=== PATIENT | male | born 1980 | race Caucasian/White ===

== ENCOUNTER 2023-11-23 11:46 | Emergency (ER) | payer BC ==
[2023-11-23] MEDS ORDERED: Aspirin Chewable 81 MG TAB ONE (12:19)
[2023-11-23 12:23] LABS: #Basophils 0.09 10x3/uL (0.0-0.2); #Eosinphils 0.29 10x3/uL (0.0-0.5); #Monocytes 0.79 10x3/uL (0.0-1.1); #Neutrophils 8.38 10x3/uL (1.5-8.4); %Basophils 0.7 % (0.0-2.0); %Eosinophils 2.3 % (0.0-6.0); %Lymphocytes 24.5 % (18.0-47.0); %Monocytes 6.2 % (0.0-10.0); %Neutrophils 65.5 % (40.0-75.0); Hematocrit 46.3 % (38.8-50.0); Hemoglobin 16.7 g/dL (13.5-17.5); Mean Corpuscular HGB CONC 36.1 g/dL (32.0-36.0); Mean Corpuscular Hemoglobin 31.9 pg (27.0-33.0); Mean Corpuscular Volume 88.4 fl (81.2-95.1); Platelet Count 273 10x3/uL (150-450); RBC Distribution Width 11.8 % (11.5-14.5); Red Blood Cell (RBC) Count 5.24 10x6/uL (4.32-5.72); White Blood Cell (WBC) Count 12.8 10x3/uL (3.5-10.5)
[2023-11-23] MEDS ORDERED: Lidocaine 2% Viscous 10 mL, Alum & Magn 30 mL SSW SCH (12:30)
[2023-11-23 12:34] LABS: ALT (SGPT) 31 U/L (8-55); AST (SGOT) 17 U/L (5-34); Albumin 4.2 g/dL (3.5-5.0); Alkaline Phosphatase 84 U/L (40-110); Anion Gap 13 mmol/L (10-20); BUN (Urea Nitrogen) 13 mg/dL (8.9-20.6); Bilirubin, Total 0.3 mg/dL (0.2-1.2); Calc. Creatinine Clearance 0 mL/min (70-130); Calcium 9.7 mg/dL (7.8-10.44); Carbon Dioxide 25 mmol/L (22-29); Chloride 98 mmol/L (98-107); Estimated GFR 90; Globulin 3.3 g/dL (2.4-3.5); Glucose 320 mg/dL (70-105); Lipase 41 U/L (8-78); Potassium 5.6 mmol/L (3.5-5.1); Protein, Total 7.5 g/dL (6.0-8.3); Sodium 130 mmol/L (136-145)
[2023-11-23 12:35] LABS: Troponin I 0.037 ng/mL (< 0.028)
[2023-11-23 13:15] LABS: ALT (SGPT) 29 U/L (8-55); AST (SGOT) 17 U/L (5-34); Albumin 4.1 g/dL (3.5-5.0); Alkaline Phosphatase 85 U/L (40-110); Anion Gap 15 mmol/L (10-20); BUN (Urea Nitrogen) 12 mg/dL (8.9-20.6); Bilirubin, Total 0.3 mg/dL (0.2-1.2); Calc. Creatinine Clearance 0 mL/min (70-130); Calcium 9.6 mg/dL (7.8-10.44); Carbon Dioxide 24 mmol/L (22-29); Chloride 98 mmol/L (98-107); Estimated GFR 93; Globulin 3.7 g/dL (2.4-3.5); Glucose 291 mg/dL (70-105); Potassium 4.4 mmol/L (3.5-5.1); Protein, Total 7.8 g/dL (6.0-8.3); Sodium 133 mmol/L (136-145)
[2023-11-23 15:22] LABS: Troponin I 0.051 ng/mL (< 0.028)
== END 2023-11-23 16:00 | disposition left against medical advice (07) ==
LOC: CSHERS 11:46
DX: R07.9 Chest pain, unspecified (principal); I10 Essential (primary) hypertension; R79.89 Other specified abnormal findings of blood chemistry; F17.210 Nicotine dependence, cigarettes, uncomplicated
CPT/HCPCS: 36415; 71045; 76705; 80053; 83690; 84484; 85025; 93005

== ENCOUNTER 2023-11-23 23:26 | Emergency (ER) | payer BC ==
[2023-11-24 00:24] LABS: Troponin I 0.037 ng/mL (< 0.028)
[2023-11-24] MEDS ORDERED: Nitroglycerin 2% Ointment 1 INCH/1 GM Packet ONE (00:38)
[2023-11-24] MEDS ORDERED: Pantoprazole 40 MG VIAL ONE (00:38)
[2023-11-24] MEDS ORDERED: Famotidine/PF 20 mg/2ml Vial ONE (00:38)
[2023-11-24] MEDS ORDERED: Morphine 4 MG/ML VIAL ONE (01:04)
[2023-11-24 02:48] LABS: Troponin I 0.036 ng/mL (< 0.028)
[2023-11-24] MEDS ORDERED: Enoxaparin 120 MG/0.8 ML SYRINGE SC ONE (03:01)
== END 2023-11-24 00:37 | disposition home or self-care (01) ==
LOC: CSHERS 23:26
DX: R07.9 Chest pain, unspecified (principal); R79.89 Other specified abnormal findings of blood chemistry; I10 Essential (primary) hypertension; F17.210 Nicotine dependence, cigarettes, uncomplicated
CPT/HCPCS: 36415; 71045; 71275; 74174; 84484; 93005; C9113; J1650; J2270; S0028